=== PATIENT | male | born 1985 | race Caucasian/White ===

== ENCOUNTER 2020-01-01 00:51 | Emergency (ER) | payer BC ==
[~2020-01-01] VITALS: Ht 180.3 cm; Wt 96.6 kg
[2020-01-01 01:38] VITALS: BP 161/100
[2020-01-01] MEDS ORDERED: cefTRIAXone SOD 1,000 MG VL IM ONE (01:45)
[2020-01-01] MEDS ORDERED: KETOROLAC TROMETH 60MG/2ML VIAL IM ONE (01:45)
== END 2020-01-01 02:08 | disposition home or self-care (01) ==
LOC: ER 00:53
DX: K04.7 Periapical abscess without sinus (principal)
CPT/HCPCS: 96372; 99284; J0696; J1885